=== PATIENT | male | born 1990 | race Hispanic/Latino ===

== ENCOUNTER 2017-11-05 17:49 | Emergency (ER) | payer SELFPAY ==
[~2017-11-05] VITALS: Ht 175.3 cm; Wt 90.0 kg
[~2017-11-05 17:49] MED LIST: CIPROFLOXACN500 MG PO; METRONIDAZOL500 MG PO; PEPTO BISMOL30 ML PO
[2017-11-05 18:35] LABS: INFLUENZA A POSITIVE (NONE DETECT); INFLUENZA B NONE DETECTED (NONE DETECT)
[2017-11-05] MEDS ORDERED: TAM75CAP PO (18:39)
[2017-11-05 18:40] VITALS: BP 121/80
== END 2017-11-05 18:40 | disposition home or self-care (01) | DRG 153 ==
LOC: ED 17:49
PROVIDERS: Emergency Medicine
DX: J11.1 Influenza due to unidentified influenza virus with other respiratory manifestations (principal)

== ENCOUNTER 2020-11-07 19:57 | Emergency (ER) | payer SELFPAY ==
[~2020-11-07] VITALS: Ht 175.3 cm; Wt 84.0 kg
[~2020-11-07 19:57] MED LIST changes: +TAM75CAP PO
[2020-11-07 22:53] LABS: HEMATOCRIT 46.4 % (39.0-50.0); HEMOGLOBIN 16.4 g/dl (14.0-18.0); IMMATURE GRANULOCYTES 1.6 % (0.0-5.0); MEAN CELL VOLUME 88.4 fL CALC (80.0-100.0); MEAN CORPUSCULAR HGB 31.2 pG CALC (26.0-32.0); MEAN CORPUSCULAR HGB CONC 35.3 g/dL CAL (32.0-36.0); NEUT# 10.7 thou/uL (1.82-7.42); RED BLOOD COUNT 5.25 mill/uL (4.70-6.10); RED CELL DISTRI WIDTH 12.1 % (11.5-15.5)
[2020-11-07 23:14] LABS: ALBUMIN 4.7 g/dL (3.2-5.0); ALKALINE PHOSPHATASE 62 u/l (38-126); BUN 15 mg/dL (9-20); BUN/CREATININE RATIO 16 (12-20 (CALC)); CARBON DIOXIDE 23 mmol/l (22-30); CHLORIDE 100 mmol/l (95-108); CREATININE 0.9 mg/dL (0.7-1.3); GFR > 60 ML/MIN (>=60 (CALC)); GFR FOR AFR.AMER. > 60 ML/MIN (>=60 (CALC)); POTASSIUM 4.1 mmol/l (3.5-5.1); SGOT/AST 28 u/l (17-59)
[2020-11-07 23:16] LABS: ANION GAP 15 (6-22 (CALC)); SODIUM 134 mmol/l (137-146)
[2020-11-07] MEDS ORDERED: AMOXICILLIN500 MG PO (23:45)
[2020-11-07] MEDS ORDERED: CLARITIN10 M1 PO (23:45)
[2020-11-08] MEDS ORDERED: CLARITIN10 M1 PO (00:13)
[2020-11-08] MEDS ORDERED: AMOXICILLIN500 MG PO (00:13)
[2020-11-08 00:15] VITALS: BP 115/69
== END 2020-11-08 00:25 | disposition home or self-care (01) | DRG 153 ==
LOC: ED 19:57
PROVIDERS: Emergency Medicine
DX: J02.9 Acute pharyngitis, unspecified (principal); R50.9 Fever, unspecified; R05 Cough; Z20.822 Contact with and (suspected) exposure to COVID-19